=== PATIENT | male | born 1970 | race Caucasian/White ===

== ENCOUNTER 2021-02-03 03:13 | Emergency (ER) | payer SELFPAY ==
[~2021-02-03] VITALS: Ht 185.4 cm; Wt 122.7 kg
--- NOTE | 2021-02-03 03:40 | NUR ---
PT CAME INTO ED THIS AM DUE TO ABDOMINAL PAIN X1 HOUR. STATES HE WOKE UP AND THOUGHT IT WAS DUE TO GAS PAIN HOWEVER AFTER ONE DIARRHEA BM HE HAD NO RELIEF. DENEIS N/V OR SYMPTOMS. PT DENIES EXPERIENCING THIS PAIN OR SIMILAR PAIN PRIOR. PAIN IS LOCATED IS IN EPIGASTRIC REGION, REPORTS IT FEELS LIKE BURNING/PRESSURE IN THAT AREA. PT PLACED ON SPO2/BP/ECG MONITORING, WCTM. BED IN LOWEST, RAILS ENGAGED, CALL LIGHT ON LAP
[2021-02-03] MEDS ORDERED: ONDANSETRON 2MG/ML, 2ML ONE (03:49)
[2021-02-03] MEDS ORDERED: MORPHINE SULFATE 4 MG/ML, 1ML ONE ×2 (03:49→04:22)
[2021-02-03] MEDS ORDERED: ONDANSETRON 2MG/ML, 2ML IVPush ONE (04:00)
[2021-02-03] MEDS: MORPHINE SULFATE 4 MG/ML, 1ML IVPush PRN ×2 (04:03→04:24)
--- NOTE | 2021-02-03 04:08 | NUR ---
TASK RN: PIV STARTED X2, LIMITED OPTIONS FOR IV ACESS D/T MULTIPLE ABCESSES ON BILAT ARMS. LABS DRAWN, PT MEDICATED PER EMAR. PT TO CT.
--- NOTE | 2021-02-03 04:19 | NUR ---
pt back from ct at this time. reports significant amounts of pain, medicated per mar, waiting for ct results. no other changes in condition at this time. bed in lowest, rails engaged, call light on lap, wctm.
[2021-02-03 04:21] LABS: BASOPHILS % (AUTO) 1 % (0-1); EOSINOPHILS % (AUTO) 1 % (1-7); LYMPHOCYTES % (AUTO) 19 % (22-44); MEAN CORPUSCULAR HEMOGLOBIN 28.9 pg (27.5-34.5); MEAN CORPUSCULAR HGB CONC 34.5 g/dL (33.2-36.2); MEAN PLATELET VOLUME 7.5 fL (7.4-10.4); MONOCYTES % (AUTO) 7 % (2-9); NEUTROPHILS % (AUTO) 73 % (42-75); PLATELET COUNT 345 x10^3/uL (130-400); RED BLOOD COUNT 5.49 x10^6/uL (4.38-5.82); RED CELL DISTRIBUTION WIDTH 13.6 % (9.4-14.8)
[2021-02-03] MEDS ORDERED: OMNIPAQUE 350 MG/ML, 100ML BOTTLE ONE (04:23)
[2021-02-03 04:24] LABS: MD NO
--- NOTE | 2021-02-03 04:27 | NUR ---
WHILE RN RE-MEDICATING PT, PT BEGAN TO AGGRESSIVELY TELL RN "WERE YOU THE ONE THAT TRIED TO SET THAT IV IN MY ARM CAUSE THAT WAS REALLY FUCKED UP AND I KNOW YOU WERE DIGGING AROUND FOR FUN TRYING TO HURT ME" RN EXPLAINED TO PT THAT THAT WAS NOT THE CASE, RATHER WE NEEDED A LARGER IV HIGHER IN THE ARM FOR THE CT CONTRAST FOR A CTA. PT WAS NOT RECEPTIVE TO INFORMATION STATING "NO NO NO DONT TELL ME THAT LIE, I DONT CARE, I KNOW WHAT YOU WERE DOING. IM NOT SOME JUNKIE THAT YOU CAN TREAT POORLY". RN EXPLAINED THAT THIS WAS NOT MY INTENTION OR THAT OF ANY OF THE OTHER NURSES PRESENT. AWAITING CT READ. WCTM.
[2021-02-03 04:34] LABS: ALANINE AMINOTRANSFERASE 27 U/L (12-78); ALBUMIN 3.6 g/dL (3.4-5.0); ANION GAP 8 mmol/L (5-15); CALCIUM 8.9 mg/dL (8.5-10.1); CHLORIDE 108 mmol/L (98-107)
[2021-02-03 04:39] LABS: ALKALINE PHOSPHATASE 103 U/L (45-117); BILIRUBIN,TOTAL 0.4 mg/dL (0.2-1.0); CREATININE 1.08 mg/dL (0.7-1.3); TOTAL PROTEIN 7.5 g/dL (6.4-8.2); TROPONIN I < 0.015 ng/mL (0.000-0.045)
--- NOTE | 2021-02-03 04:53 | NUR ---
TASK RN: PT DESAT WHILE SLEEPING. PLACED ON 4L NC W/ DESIRED EFFECT. PT SLEEPING ON GURNEY. TRICIA.
[2021-02-03 05:12] VITALS: BP 163/105
--- NOTE | 2021-02-03 05:31 | NUR ---
Patient given discharge instructions and they have confirmed that they understand the instructions. Patient ambulatory with steady gait. STATES HE WILL GET A TAXI HOME, NAD, DENIES ADDITIONAL QUESTIONS OR NEEDS. NO PERSONAL BELONGINGS LEFT IN ROOM AFTER DC.
== END 2021-02-03 05:33 | disposition home or self-care (01) ==
LOC: ED 03:43
DX: K29.00 Acute gastritis without bleeding (principal); R59.0 Localized enlarged lymph nodes; R00.0 Tachycardia, unspecified
CPT/HCPCS: 36415; 71275; 74175; 80053; 83605; 83690; 84484; 85025; 93005; 96374; 96375; 99285; J2270; J2405; Q9967